=== PATIENT | female | born 1945 | race Caucasian/White ===

== ENCOUNTER 2019-06-10 11:57 | Observation (INO) ==
--- NOTE | 2019-06-10 12:12 | Emergency Department Note ---
Disposition Clinical Impression: Numbness Disposition: Admitted As Inpatient Condition: Fair Time of Disposition: 14:12 Neuro HPI - General Chief Complaint: ED Neuro Symptoms/Deficit Stated Complaint: numbness Time Seen by Provider: 06/10/19 12:05 Source: patient Mode of arrival: wheelchair Limitations: no limitations Nursing Notes Reviewed: Yes Vital Signs Reviewed: Yes - History of Present Illness HPI Narrative: Patient is a 73-year-old female with past medical history of CVA/TIA, hypertension, hyperlipidemia who presents with numbness since 7:30 this morning. She woke up feeling normal, however after eating breakfast around 7:30 started to feel symptoms on the left side of her body including her face, neck, left upper extremity, torso, left lower extremity. He also mentions that she has had some difficulty producing words. During the interview she did not appear to hav e any difficulty pronouncing words, however speech does sound slurred. She did not have any weakness. Patient does have a history of seizures, however says that she is compliant with her medications. Says that this does not feel like seizures that she has no past. Does have a remote history of intracranial bleed when she was a small child. No other head trauma since. Patient is not on any blood thinners. Patient denies any nausea, vomiting, fevers, chills. Denies any chest pain, shortness of breath, syncope. She also has not had any vision changes, hearing changes. Denies any dizziness or lightheadedness. Patient is able to follow commands and is alert and oriented. Onset of Symptoms Date: 06/10/19 Onset of Symptoms Time: 07:30 Symptom Onset Unknown: Yes - Related Data Home Medications: Home Medications Medication Instructions Recorded Confirmed Amitriptyline [Elavil] 50 mg PO HS 06/10/19 06/10/19 Amlodipine Besylate 5 mg PO DAILY 06/10/19 06/10/19 Cyanocobalamin (Vitamin B-12) 250 mcg PO DAILY 06/10/19 06/10/19 [Vitamin B-12] Cyclobenzaprine HCl 5 mg PO HS 06/10/19 06/10/19 Donepezil [Aricept] 5 mg PO DAILY 06/10/19 06/10/19 Duloxetine HCl 20 mg PO DAILY 06/10/19 06/10/19 Ferrous Gluconate 324 mg PO DAILY 06/10/19 06/10/19 Levothyroxine Sodium 50 mcg PO 0630 06/10/19 06/10/19 Omeprazole [PriLOSEC] 40 mg PO DAILY 06/10/19 06/10/19 Topiramate 50 mg PO DAILY 06/10/19 06/10/19 levETIRAcetam [Levetiracetam] 1,000 mg PO BID 06/10/19 06/10/19 Allergies/Adverse Reactions: Allergies Allergy/AdvReac Type Severity Reaction Status Date / Time ampicillin Allergy Nausea Verified 02/01/19 10:38 atenolol Allergy Nausea Verified 02/01/19 10:38 atorvastatin [From Lipitor] Allergy Nausea Verified 02/01/19 10:38 celecoxib [From Celebrex] Allergy Nausea Verified 02/01/19 10:38 codeine Allergy Nausea Verified 02/01/19 10:38 meperidine [From Demerol] Allergy Nausea Verified 02/01/19 10:38 morphine Allergy Nausea Verified 02/01/19 10:38 naproxen Allergy Nausea Verified 02/01/19 10:38 Penicillins Allergy Rash Verified 08/18/18 09:52 phenytoin [From Dilantin] Allergy Nausea Verified 02/01/19 10:38 rofecoxib [From Vioxx] Allergy Nausea Verified 02/01/19 10:38 simvastatin [From Zocor] Allergy Nausea Verified 02/01/19 10:38 [id number] Reductase Allergy Nausea Verified 02/01/19 10:38 Inhibitor [Statins] Sulfa (Sulfonamide Allergy Nausea Verified 02/01/19 10:38 Antibiotics) All systems ED: reviewed and negative except as stated. Review of Systems: As Per HPI Constitutional: Denies: fever, chills, weakness Eyes: Denies: eye pain, eye discharge, vision change ENT ED: Denies: ear pain, congestion, dysphagia Cardiovascular: Denies: chest pain, palpitations, dyspnea on exertion Past Medical History - Past Medical History Attestation: Yes The following information was validated with the patient. Source: patient, old records reviewed Medical history: Reports: arthritis, CVA, hyperlipidemia, kidney stones, migraine, seizures, thyroid disease, TIA Surgical history: Reports: appendectomy, cholecystectomy, hysterectomy Psychiatric history: Reports: anxiety, depression - Social History Smoking Status: Never smoker Smokeless Tobacco Status: No Alcohol use: Reports: none Drug use: Reports: none Physical Exam GEN: NAD, conversant. HEAD: Normocephalic, atraumatic. EYES: PERRL, EOMI, anicteric. ENT: MMM. oropharynx without erythema or drainage. NECK: Supple. No LAD. No stiffness or restricted ROM. No tracheal deviation. HEART: Regular rate and regular rhythm, normal S1/S2, no m/r/g. LUNGS: CTAB, good air exchange bilaterally. No wheezing, rubs, or rhonchi. ABDO: Soft, nontender, nondistended with active bowel sounds. : No suprapubic tenderness or CVA tenderness. BACK: No obvious stepoffs or deformities. EXT: Without cyanosis, clubbing or edema. SKIN: Warm and dry without any rash. NEURO: AAO 3, CN II through XII intact, strength 5 out of 5 in upper and lower extremities. Sensation decreased on the left side of face, left upper extremity, left lower extremity. PSYCH: Normal affect, no depressed or anxious mood. - General Limitations: no limitations General appearance: alert Course Course Narrative: Stroke alert was activated. She was seen and examined at bedside. Initial vitals were within normal limits. Exam was notable for left-sided numbness extending from the neck upper and lower extremity. Her NIH stroke score scale is 1. CT of the head showed no acute intracranial abnormalities, chronic microvascular ischemic changes. EKG was also normal. Lab workup was remarkable. Spoke with Dr. Lazo over at [facility] using telestroke. Decided that due to minimal symptoms, patient was not a candidate for TPA. Recommended admission for further workup including potential echo, MRI. And to further investigate causes of weakness including metabolic abnormalities, polypharmacy, etc. We will give aspirin per stroke protocol. She was communicated to the hospitalist for admission. Patient was accepted by Dr. Buckley. Vital Signs Temperature 98.3 F 06/10/19 12:15 Pulse Rate 60 06/10/19 12:15 Respiratory Rate 18 06/10/19 12:15 Blood Pressure 125/62 06/10/19 12:15 O2 Sat by Pulse Oximetry 100 06/10/19 12:15 Temperature 98.3 F 06/10/19 12:15 Pulse Rate 60 06/10/19 13:15 Respiratory Rate 16 09/23/19 13:15 Blood Pressure 119/62 06/10/19 13:15 O2 Sat by Pulse Oximetry 98 06/10/19 13:15 Oxygen Delivery Oxygen Delivery Room Air Neuro Symptoms/Deficit - Medical Records Medical records reviewed: Yes I reviewed the patient's medical records. - Lab Data Lab results reviewed: Yes I reviewed the patient's lab results. Result diagrams: 06/10/19 12:10 06/10/19 12:10 Lab Results 06/10/19 06/10/19 06/10/19 Range/Units 12:08 12:10 12:10 WBC 5.2 (4.3-11.1) K/mcL RBC 4.34 (3.82-4.97) M/mcL Hgb 13.8 (11.5-15.4) g/dL Hct 41.4 (35.3-44.9) % MCV 95.4 (83.0-100.0) fL MCH 31.8 (28.0-33.3) pg MCHC 33.3 (31.6-35.5) g/dL RDW 11.9 (11.5-14.5) % Plt Count 157 (140-400) K/mcL MPV 10.2 (9.4-12.4) fL PT 11.3 (9.4-12.1) Seconds INR 1.0 APTT 29.1 (26.0-36.0) Seconds Sodium (136-145) mEq/L Potassium (3.5-5.1) mEq/L Chloride (98-107) mEq/L Carbon Dioxide (23-29) mEq/L BUN (8-23) mg/dL Creatinine (0.60-1.20) mg/dL Est GFR ( Amer) (> 60) Est GFR (Non-Af Amer) (> 60) BUN/Creatinine Ratio (6-26) Glucose (70-105) mg/dL POC Glucose 130 H (70-99) mg/dL Calculated Osmolality (280-300) Calcium (8.6-10.3) mg/dL Troponin I (< 0.04) ng/mL 06/10/19 Range/Units 12:10 WBC (4.3-11.1) K/mcL RBC (3.82-4.97) M/mcL Hgb (11.5-15.4) g/dL Hct (35.3-44.9) % MCV (83.0-100.0) fL MCH (28.0-33.3) pg MCHC (31.6-35.5) g/dL RDW (11.5-14.5) % Plt Count (140-400) K/mcL MPV (9.4-12.4) fL PT (9.4-12.1) Seconds INR APTT (26.0-36.0) Seconds Sodium 142 (136-145) mEq/L Potassium 3.9 (3.5-5.1) mEq/L Chloride 107 (98-107) mEq/L Carbon Dioxide 29 (23-29) mEq/L BUN 12 (8-23) mg/dL Creatinine 1.02 (0.60-1.20) mg/dL Est GFR ( Amer) > 60 (> 60) Est GFR (Non-Af Amer) 53 L (> 60) BUN/Creatinine Ratio 12 (6-26) Glucose 139 H (70-105) mg/dL POC Glucose (70-99) mg/dL Calculated Osmolality 296 (280-300) Calcium 8.7 (8.6-10.3) mg/dL Troponin I < 0.03 (< 0.04) ng/mL - Radiology Data Radiology results reviewed: Yes I reviewed the patient's radiology results. - EKG Data EKG attestation: Yes I reviewed and interpreted this EKG. EKG results narrative: EKG obtained at 12:20 PM showed normal sinus rhythm, normal axis, left bundle branch block, no evidence of hypertrophy, no acute ischemic changes. Compared to previous from March 08, 2019. NIH Stroke Scale - Level of Consciousness LOC: Alert - LOC Questions LOC Questions: Answers both correctly - LOC Commands LOC Commands: Performs both correctly - Best Gaze Best Gaze: Normal - Visual Visual: No visual loss - Facial Palsy Facial Palsy: Normal - Motor Arms Motor Arm-Left: No drift for 10 seconds Motor Arm-Right: No drift for 10 seconds - Motor Legs Motor Leg-Left: No drift for 5 seconds Motor Leg-Right: No drift for 5 seconds - Limb Ataxia Limb Ataxia: Normal, No Ataxia - Sensory Sensory: Mild to moderate loss, "not as sharp" - Best Language Best Language: No aphasia - Dysarthria Dysarthria: Normal - Extinction and Inattention Extinction and Inattention: Normal - NIHSS Total Score NIHSS Total Score: 1 TPA Checklist - LKW: 3-4.5 hrs Add. Warnings/Precautions Patient/family understanding: The patient/family members have been counseled and understood the risk, benefit, and alternatives of treatment. Attestation Statement - Attestation Attestation: I, Luc Ruelas DO, examined this patient [id number] and my medical decision-making was reviewed with Saqib Sherwood MD, Resident Physician. I agree with the documented findings, disposition and treatment plan as described exce pt to the extent set forth below. I personally supervised and was present for the amador/critical portions of the procedures completed by the resident documented below. Please see my progress notes for details.
[2019-06-10 12:19] LABS: Hematocrit 41.4 % (35.3-44.9); Hemoglobin 13.8 g/dL (11.5-15.4); Mean Corpuscular HGB Conc 33.3 g/dL (31.6-35.5); Mean Corpuscular Hemoglobin 31.8 pg (28.0-33.3); Mean Corpuscular Volume 95.4 fL (83.0-100.0); Mean Platelet Volume 10.2 fL (9.4-12.4); Platelet Count 157 K/mcL (140-400); Red Blood Count 4.34 M/mcL (3.82-4.97); Red Cell Distribution Width 11.9 % (11.5-14.5); White Blood Count 5.2 K/mcL (4.3-11.1)
[2019-06-10 12:27] LABS: Prothrombin Time 11.3 Seconds (9.4-12.1)
--- NOTE | 2019-06-10 12:27 | Emergency Department Note ---
Disposition Clinical Impression: Transient cerebral ischemia, Numbness Disposition: Admitted As Inpatient Condition: Fair Forms: ED Satisfaction Letter Time of Disposition: 13:43 General Adult HPI - General Chief complaint: ED Neuro Symptoms/Deficit Stated complaint: numbness Time Seen by Provider: 06/10/19 12:05 - Related Data Home Medications Medication Instructions Recorded Confirmed Amitriptyline [Elavil] 50 mg PO HS 06/10/19 06/10/19 Amlodipine Besylate 5 mg PO DAILY 06/10/19 06/10/19 Cyanocobalamin (Vitamin B-12) 250 mcg PO DAILY 06/10/19 06/10/19 [Vitamin B-12] Cyclobenzaprine HCl 5 mg PO HS 06/10/19 06/10/19 Donepezil [Aricept] 5 mg PO DAILY 06/10/19 06/10/19 Duloxetine HCl 20 mg PO DAILY 06/10/19 06/10/19 Ferrous Gluconate 324 mg PO DAILY 06/10/19 06/10/19 Levothyroxine Sodium 50 mcg PO 0630 06/10/19 06/10/19 Omeprazole [PriLOSEC] 40 mg PO DAILY 06/10/19 06/10/19 Topiramate 50 mg PO DAILY 06/10/19 06/10/19 levETIRAcetam [Levetiracetam] 1,000 mg PO BID 06/10/19 06/10/19 Allergies Allergy/AdvReac Type Severity Reaction Status Date / Time ampicillin Allergy Nausea Verified 02/01/19 10:38 atenolol Allergy Nausea Verified 02/01/19 10:38 atorvastatin [From Lipitor] Allergy Nausea Verified 02/01/19 10:38 celecoxib [From Celebrex] Allergy Nausea Verified 02/01/19 10:38 codeine Allergy Nausea Verified 02/01/19 10:38 meperidine [From Demerol] Allergy Nausea Verified 02/01/19 10:38 morphine Allergy Nausea Verified 02/01/19 10:38 naproxen Allergy Nausea Verified 02/01/19 10:38 Penicillins Allergy Rash Verified 08/18/18 09:52 phenytoin [From Dilantin] Allergy Nausea Verified 02/01/19 10:38 rofecoxib [From Vioxx] Allergy Nausea Verified 02/01/19 10:38 simvastatin [From Zocor] Allergy Nausea Verified 02/01/19 10:38 [id number] Reductase Allergy Nausea Verified 02/01/19 10:38 Inhibitor [Statins] Sulfa (Sulfonamide Allergy Nausea Verified 02/01/19 10:38 Antibiotics) Past Medical History - Past Medical History Medical history: Reports: arthritis, CVA, hyperlipidemia, kidney stones, migraine, seizures, thyroid disease, TIA Surgical history: Reports: appendectomy, cholecystectomy, hysterectomy Psychiatric history: Reports: anxiety, depression - Social History Smoking Status: Never smoker Smokeless Tobacco Status: No Alcohol use: Reports: none Drug use: Reports: none Course Vital Signs Temperature 98.3 F 06/10/19 12:15 Pulse Rate 60 06/10/19 12:15 Respiratory Rate 18 06/10/19 12:15 Blood Pressure 125/62 06/10/19 12:15 O2 Sat by Pulse Oximetry 100 06/10/19 12:15 Temperature 98.3 F 06/10/19 12:15 Pulse Rate 60 06/10/19 13:15 Respiratory Rate 16 06/10/19 13:15 Blood Pressure 119/62 06/10/19 13:15 O2 Sat by Pulse Oximetry 98 06/10/19 13:15 Oxygen Delivery Oxygen Delivery Room Air Medical Decision Making - Lab Data Result diagrams: 06/10/19 12:10 06/10/19 12:10 Lab Results 06/10/19 06/10/19 06/10/19 Range/Units 12:08 12:10 12:10 WBC 5.2 (4.3-11.1) K/mcL RBC 4.34 (3.82-4.97) M/mcL Hgb 13.8 (11.5-15.4) g/dL Hct 41.4 (35.3-44.9) % MCV 95.4 (83.0-100.0) fL MCH 31.8 (28.0-33.3) pg MCHC 33.3 (31.6-35.5) g/dL RDW 11.9 (11.5-14.5) % Plt Count 157 (140-400) K/mcL MPV 10.2 (9.4-12.4) fL PT 11.3 (9.4-12.1) Seconds INR 1.0 APTT 29.1 (26.0-36.0) Seconds Sodium (136-145) mEq/L Potassium (3.5-5.1) mEq/L Chloride (98-107) mEq/L Carbon Dioxide (23-29) mEq/L BUN (8-23) mg/dL Creatinine (0.60-1.20) mg/dL Est GFR ( Amer) (> 60) Est GFR (Non-Af Amer) (> 60) BUN/Creatinine Ratio (6-26) Glucose (70-105) mg/dL POC Glucose 130 H (70-99) mg/dL Calculated Osmolality (280-300) Calcium (8.6-10.3) mg/dL Troponin I (< 0.04) ng/mL 06/10/19 Range/Units 12:10 WBC (4.3-11.1) K/mcL RBC (3.82-4.97) M/mcL Hgb (11.5-15.4) g/dL Hct (35.3-44.9) % MCV (83.0-100.0) fL MCH (28.0-33.3) pg MCHC (31.6-35.5) g/dL RDW (11.5-14.5) % Plt Count (140-400) K/mcL MPV (9.4-12.4) fL PT (9.4-12.1) Seconds INR APTT (26.0-36.0) Seconds Sodium 142 (136-145) mEq/L Potassium 3.9 (3.5-5.1) mEq/L Chloride 107 (98-107) mEq/L Carbon Dioxide 29 (23-29) mEq/L BUN 12 (8-23) mg/dL Creatinine 1.02 (0.60-1.20) mg/dL Est GFR ( Amer) > 60 (> 60) Est GFR (Non-Af Amer) 53 L (> 60) BUN/Creatinine Ratio 12 (6-26) Glucose 139 H (70-105) mg/dL POC Glucose (70-99) mg/dL Calculated Osmolality 296 (280-300) Calcium 8.7 (8.6-10.3) mg/dL Troponin I < 0.03 (< 0.04) ng/mL Attestation Statement - Attestation Attestation: I, Luc Ruelas DO, examined this patient [id number] and my medical decision-making was reviewed with Saqib Sherwood MD, Resident Physician. I agree with the documented findings, disposition and treatment plan as described except to the extent set forth below. I personally supervised and was present for the amador/critical portions of the procedures completed by the resident documented below. Please see my progress notes for details. 73-year-old female presents emergency room for evaluation of described difficulty with getting her words out as well as left-sided facial extremity torso and lower extremity numbness and tingling. Patient was able to ambulate at the bedside from her chair on her own. Patient was brought in by her with concern for possible stroke. 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 She is not currently on any blood thinners. She denies any recent falls trauma or injury. Currently denying chest pain shortness of breath. She has had intermittent headaches but does not have any acute headache at this time. Denies any recent illnesses, nausea, vomiting, diarrhea. She has been compliant with all of her medications without any active changes. Patient describes symptoms on arrival there is concern for possible stroke. Stroke alert was called at that time. Patient's head is atraumatic p upils are equal round reactive extracted muscles are intact. No visible signs of facial asymmetry. Sensation is intact to the bilateral facial distributions but appears to be different than the left side according to the patient's described symptoms. We will fax is patent soft palate is symmetrical. Tongue is normal. No deviation noted on exam. Trachea is midline lungs are clear heart is regular. Extremities otherwise normal with no visible signs of ataxia drift or weakness at this time. She is describing a sensation related abnormalities in left side of her body all the way down to her feet. Pulses are intact in the radial DP and PT distributions and symmetrical at this time. EKG was collected and reviewed by myself in documented as a physician's note. No acute abnormalities noted at this time. Patient's medication list will be reviewed as well and seizure medications will be addressed. Patient has not had a seizure in almost 2 years and denies any symptoms like that at this time. She remembers all the events here today. Patient woke up this morning about 7:30 was doing well and within an hour or so started to feel the symptoms that brought her into the emergency department. Last known well was approximately 5 hours will here to the emergency room. [facility] stroke evaluation to be completed and disposition determined. See detailed documentation the physical exam, medical intervention, medical decision-making disposition the resident physician's note. No critical care applied the patient's treatment course at this time. 1315 Patient has negative laboratory workup at this time. The [facility] neurologist Dr. Lazo reviewed the patient's presentation and case. Did not recommend TPA this time but did recommend admission for further evaluation of her symptomatically presentation. Patient is still mentating and speaking clear ly. No other acute issues or complaints at this time. The hospitalist at our facility Dr. Buckley reviewed the case. No other recommendations or concerns were noted. Aspirin was given secondary to the negative CT scan of the head. Patient will be admitted for possible TIA versus neurologic symptoms of unknown etiology. Her EKG labs and other imaging are completely unremarkable. Patient will be monitored here in the emergency Department of the admission process is completed.
[2019-06-10 12:30] LABS: Activated Partial Thrombo Time 29.1 Seconds (26.0-36.0)
[2019-06-10 12:36] LABS: BUN/Creatinine Ratio 12 (6-26); Blood Urea Nitrogen 12 mg/dL (8-23); Calcium 8.7 mg/dL (8.6-10.3); Carbon Dioxide 29 mEq/L (23-29); Chloride 107 mEq/L (98-107); Glucose 139 mg/dL (70-105); Osmolality,Calculated 296 (280-300); Potassium 3.9 mEq/L (3.5-5.1); Sodium 142 mEq/L (136-145); eGFR For African Americans > 60 (> 60); eGFR For Non-African Americans 53 (> 60)
[2019-06-10 12:38] LABS: Troponin I < 0.03 ng/mL (< 0.04)
[2019-06-10] MEDS ORDERED: Aspirin 325 MG TABLET PO ONE (12:48)
[2019-06-10] MEDS ORDERED: Naloxone 0.4 MG/ML INJ IVP PRN (14:14)
[2019-06-10 14:21] LABS: Bilirubin,Urine Negative (Negative); Blood,Urine Negative (Negative); Clarity,Urine Clear (Clear); Color,Urine Yellow (Yellow); Glucose,Urine (UA) Normal (Normal); Ketones,Urine Negative (Negative); Leukocyte Esterase,Urine Small (Negative); Nitrite,Urine Negative (Negative); Protein,Urine Negative (Neg-Trace); Specific Gravity,Urine 1.015 (1.010-1.025); Urobilinogen,Urine Normal (Normal)
[2019-06-10 14:24] LABS: Bacteria,Urine None Seen per hpf (None-Few); Hyaline Casts,Urine None Seen per lpf (None-Few); Squamous Epithelial Cell,Urine Many per lpf (None-Few)
--- NOTE | 2019-06-10 15:43 | Internal Med History&Physical ---
Date of Encounter: 06/10/19 Time of Encounter: 14:00 Internal Medicine - H&P: HPI Chief complaint: Numbness, confusion Admitted From: Emergency Dept Plans for Post Hospital Care: Home History of present illness: Ms. Yadav is a 73 year old female with a past medical history significant for seizure disorder, presented to the hospital because of numbness and tingling sensation on the left side of her body and confusion. According to the patient, she woke up at her usual time at 7:30 AM in the morning, had her breakfast, then she started realizing that there has been some numbness and tingling on the left side of her face and then the numbness and tingling also started on her whole body on the left side. She was also more confused and she had some difficulty finding the words. She called her daughter was a thought that she is confused and advised the patient to go to the emergency department. Patient mentioned that she has history of seizure she had multiple episodes like this in the past but they were resulted in seizure episodes. She has been seizure free for almost 5 years now. He did not have any episode like this in the last 5 years. Denies any problem with swallowing food, vision, headaches. Denies any problem with gait. Denies fever, chills, rigors. Denies chest pain, shortness of breanna ath, exertional dyspnea, PND. She was otherwise in her usual state of health. She mentions that she has problem with angina and sometimes take nitroglycerin pill but she does not have any history of [place]. She had a cardiac cath done in the past which was normal. In the emergency department patient was hemodynamically stable. EKG did not show any ischemic changes. Laboratory workup was normal. UA showed concerns for UTI. The patient is asymptomatic. CT scan of the head negative for bleeding or acute intracranial abnormalities. Did show cerebral and cerebellar parenchymal volume loss with chronic microvascular white matter ischemic disease. Stroke alert was called and the patient, recommendations were against giving the patient TPA. She was admitted for further management. Past Med Surg Social Fam HX - Past Medical History Medical history: arthritis, CVA, hyperlipidemia, kidney stones, migraine, seizures, thyroid disease, TIA Additional medical history: TBI Psychiatric history: anxiety, depression - Past Surgical History Surgical History: appendectomy, cholecystectomy, hysterectomy Additional surgical history: L breast sx, R axilla lipoma sx, rectocele repair, CTS - Social History Smoking Status: Never smoker Smokeless Tobacco Status: No Alcohol use: none Drug use: none - Additional Family History Additional family history: Father with the hx of CAD Internal Medicine - H&P: Meds Amitriptyline [Elavil] 50 mg PO HS 06/10/19 [History] Amlodipine Besylate 5 mg PO DAILY 06/10/19 [History] Cyanocobalamin (Vitamin B-12) [Vitamin B-12] 250 mcg PO DAILY 06/10/19 [History] Cyclobenzaprine HCl 5 mg PO HS 06/10/19 [History] Donepezil [Aricept] 5 mg PO DAILY 06/10/19 [History] Duloxetine HCl 20 mg PO DAILY 06/10/19 [History] Ferrous Gluconate 324 mg PO DAILY 06/10/19 [History] Levothyroxine Sodium 50 mcg PO 0630 06/10/19 [History] Omeprazole [PriLOSEC] 40 mg PO DAILY 06/10/19 [History] Topiramate 50 mg PO DAILY 06/10/19 [History] levETIRAcetam [Levetiracetam] 1,000 mg PO BID 06/10/19 [History] Allergy/AdvReac Type Severity Reaction Status Date / Time ampicillin Allergy Nausea Verified 02/01/19 10:38 atenolol Allergy Nausea Verified 02/01/19 10:38 atorvastatin [From Lipitor] Allergy Nausea Verified 02/01/19 10:38 celecoxib [From Celebrex] Allergy Nausea Verified 02/01/19 10:38 codeine Allergy Nausea Verified 02/01/19 10:38 meperidine [From Demerol] Allergy Nausea Verified 02/01/19 10:38 morphine Allergy Nausea Verified 02/01/19 10:38 naproxen Allergy Nausea Verified 02/01/19 10:38 Penicillins Allergy Rash Verified 08/18/18 09:52 phenytoin [From Dilantin] Allergy Nausea Verified 02/01/19 10:38 rofecoxib [From Vioxx] Allergy Nausea Verified 02/01/19 10:38 simvastatin [From Zocor] Allergy Nausea Verified 02/01/19 10:38 Owqvdla-Nho-Bwy Reductase Allergy Nausea Verified 02/01/19 10:38 Inhibitor [Statins] Sulfa (Sulfonamide Allergy Nausea Verified 02/01/19 10:38 Antibiotics) All Systems PM: A 10-system review of systems was performed and is negative for pertinent findings except as documented above in the HPI. Review of systems: General: Negative for fever, chills, rigors. HEENT: Negative for neck swelling, discharge from nose, discharge from ears. EYES: Negative for any discharge from the eyes. Respiratory: Negative for shortness of breath, orthopnea, exertional dyspnea. Cardiovascular: Negative for chest pain, shortness of breath, orthopnea, PND. Gastrintestical: Negative for diarrhea, constipation, blood in stools. Genitourinary: Negative for dysuria, hematuria, nocturia, increased frequency of urine. Hematological: Negative for blood loss, negative for active cancer. Neurological: See HPI Endocrinology: Negative for constipation, polyuria, polydipsia. Integumentary: Negative for rash, wounds, ulcers. Psychiatric: Negative for anxiety or depression. - Constitutional Vitals: Temp Pulse Resp BP Pulse Ox 98.1 F 65 16 132/73 95 06/10/19 15:27 06/10/19 15:27 06/10/19 15:27 06/10/19 15:27 06/10/19 15:27 Exam: General: Alert and oriented, no physical distress, able to follow commands. HEENT: No thyromegaly, no lymphadenopathy, no discharge. Eyes: No discharge. Normal conjuctiva, no icterus Respiratory: Normal vesicular breathing, no added sounds, breathing equal in both sides. CVS: Normal heart sounds, no murmurs, regular rhthm, no edema Extremities: No peripheral edema, peripheral pulses intact. Lymph nodes: No lymphadenopathy Gastrointestinal: Soft, nontender abdomen, normal abdominal sounds. No distention noted. Genitourinary: No paravertebral tenderness. Skin: No rash, ulcers or wound. Neurological: Alert and oriented. Power 5/5 in all extremities, pt mentions that sesations are weaker in the left side. Cranial nerves II-XII intact. Head to nsoe test normal, no pronator drift. Internal Med - H&P Results - Labs CBC & Chem 7: 06/10/19 12:10 06/10/19 12:10 Labs: Short CBC 06/10/19 Range/Units 12:10 WBC 5.2 (4.3-11.1) K/mcL Hgb 13.8 (11.5-15.4) g/dL Hct 41.4 (35.3-44.9) % Plt Count 157 (140-400) K/mcL BMP 06/10/19 12:10 Sodium 142 Potassium 3.9 Chloride 107 Carbon Dioxide 29 BUN 12 Creatinine 1.02 Glucose 139 H Calcium 8.7 Cardiac Enzymes 06/10/19 Range/Units 12:10 Troponin I < 0.03 (< 0.04) ng/mL Urine 06/10/19 Range/Units 13:57 Urine Color Yellow (Yellow) Urine Clarity Clear (Clear) Urine pH 6.0 (5.0-8.0) pH Units Ur Specific [place] 1.015 (1.010-1.025) Urine Protein Negative (Neg-Trace) mg/dL Urine Glucose (UA) Normal (Normal) mg/dL - Impressions ITS Impressions Head CT 06/10/19 12:16 IMPRESSION: 1. No acute intracranial abnormality. 2. Cerebral and cerebellar parenchymal volume loss with chronic microvascular white matter ischemic disease. These results were discussed with Dr. Sherwood at 12:19 p.m. on 06/10/2019. D/ / 06/10/2019 12:28:06 Walt Natarajan MD / edilberto Interpreting Provider: Walt Natarajan MD - Assessment and Plan (1) CVA (cerebral vascular accident) Current Visit: Yes Status: Acute Assessment and plan: Concerns for the CVA considering the patient history. Has been given aspirin in the ER medicine Department. [facility] monitoring. Order the basic workup including echocardiogram, carotid Dopplers, telemetry, MRI of the brain. [employer] neurology. Obtain lipid panel and hemoglobin A1c. Continue to monitor. PT/OT Patient mentions that she has statin allergy. Qualifiers: CVA mechanism: unspecified Qualified Code(s): I63.9 - Cerebral infarction, unspecified (2) Seizure disorder Current Visit: Yes Status: Acute Assessment and plan: This episode does not seem to be a seizure episode. Continue the home medications. (3) Hypertension Current Visit: Yes Status: Acute Assessment and plan: Blood pressure within desirable range. Hold amlodipine at this point considering the patient's blood pressure is already low and there are concerns for the TIA Qualifiers: Hypertension type: unspecified Qualified Code(s): I10 - Essential (primary) hypertension (4) Hypothyroidism Current Visit: Yes Status: Acute Assessment and plan: Continue home medication. Qualifiers: Hypothyroidism type: unspecified Qualified Code(s): E03.9 - Hypothyroidism, unspecified (5) Dementia Current Visit: Yes Status: Acute Assessment and plan: Continue Aricept. Qualifiers: Dementia type: unspecified type Dementia behavioral disturbance: without behavioral disturbance Qualified Code(s): F03.90 - Unspecified dementia without behavioral disturbance (6) Numbness Current Visit: Yes Status: Acute Assessment and plan: Management plan mentioned above. (7) Urine abnormality Current Visit: Yes Status: Acute Assessment and plan: UA positive. Patient is asymptomatic. Hold off on the antibiotics. Await culture results. - Summary of Assessment and Plan Summary of Assessment and Plan: Patient EKG was reviewed by me. Reviewed laboratory workup. Reviewed CT scan report. - Time Spent With Patient Total time spent is greater than 50% in coordination of care (as documented) at patient's floor/unit and/or counseling patient:
[2019-06-10] MEDS: levETIRAcetam 250 MG TABLET PO SCH (20:25)
[2019-06-10] MEDS ORDERED: Perflutren Lipid Microsphere 1.3 ML in 0.9 % Sodium Chloride 8.7 ML IVP ONE (22:06)
[2019-06-11 05:17] LABS: Basophils % 0.6 %; Eosinophils # 0.3 K/mcL (0.0-0.6); Eosinophils % 5.7 %; Hematocrit 39.8 % (35.3-44.9); Hemoglobin 13.4 g/dL (11.5-15.4); Immature Granulocytes % 0.2 % (0-4); Lymphocytes # 1.9 K/mcL (0.6-4.6); Lymphocytes % 34.8 %; Mean Corpuscular HGB Conc 33.7 g/dL (31.6-35.5); Mean Platelet Volume 10.6 fL (9.4-12.4); Monocytes # 0.6 K/mcL (0.0-1.3); Monocytes % 10.5 %; Neutrophils # 2.6 K/mcL (1.6-8.9); Platelet Count 148 K/mcL (140-400); Red Blood Count 4.19 M/mcL (3.82-4.97); Red Cell Distribution Width 11.9 % (11.5-14.5); Segmented Neutrophils % 48.2 %; White Blood Count 5.4 K/mcL (4.3-11.1)
[2019-06-11 05:37] LABS: BUN/Creatinine Ratio 15 (6-26); Blood Urea Nitrogen 14 mg/dL (8-23); Calcium 8.4 mg/dL (8.6-10.3); Carbon Dioxide 27 mEq/L (23-29); Chloride 109 mEq/L (98-107); Glucose 103 mg/dL (70-105); Osmolality,Calculated 295 (280-300); Potassium 3.5 mEq/L (3.5-5.1); Sodium 142 mEq/L (136-145); eGFR For African Americans > 60 (> 60); eGFR For Non-African Americans 60 (> 60)
[2019-06-11 05:41] LABS: Chol/HDL Ratio 3.1 (0-4.9)
[2019-06-11 07:29] VITALS: BP 111/60
[2019-06-11 08:55] LABS: Estimated Average Glucose 114 mg/dl
[2019-06-11] MEDS ORDERED: Cyanocobalamin (B-12) 1,000 MCG TABLET PO SCH (09:00)
[2019-06-11] MEDS ORDERED: Aspirin 81 MG TAB.CHEW PO SCH (09:00)
[2019-06-11] MEDS ORDERED: Topiramate 25 MG TABLET PO SCH (09:00)
[2019-06-11] MEDS: levETIRAcetam 250 MG TABLET PO SCH (09:32)
--- NOTE | 2019-06-11 09:58 | Neurology - Consult Note ---
Date of Encounter: 06/11/19 Time of Encounter: 07:45 Assessment and Plan (1) Left sided numbness Current Visit: Yes Status: Acute This patient was admitted with this left-sided numbness as well as some difficulty with his speech that all has been resolved now and she is back to the baseline, so far workup including CT scan of the head as well as MRI has been negative Certainly is a possibility that patient could have a TIA She will be getting a stroke workup including echocardiogram and carotid She is not on any antiplatelet agent I would recommend that she should be taking aspirin 81 mg on a regular basis along with statin to prevent any further spells like this She does need this factor modification Other possibility that these could be a complex partial seizure but the description does not sound like a typical seizures in fact it is more of a TIA then the seizures, regardless suggest to continue on the current dosage of anticonvulsive medication At the moment I did not see any focal motor deficit on examination She does not require any physical therapy evaluation at this time If workup negative including echocardiogram and carotid she could be discharged with antiplatelet therapy (2) History of seizure disorder Current Visit: Yes Status: Acute History of Present Illness HPI: Ms. Yadav is a 73 year old female with past medical history significant for seizure disorder, presented to the hospital because of numbness and tingling sensation on the left side of her body and some confusion. According to the patient, she woke up at her usual time at 7:30 AM in the morning, had her breakfast, then she started realizing that there has been some numbness and tingling on the left side of her face and then the numbness and tingling also started on her whole body on the left side. per daughter some confusion and some difficulty finding the words. She has history of seizure she had multiple episodes like this in the past but they were resulted in seizure episodes. she did not have any episode like this in the last 5 years. Denies any problem with swallowing food, vision, headaches. Denies any problem with gait. Denies fever, chills, rigors. Denies chest pain, shortness of breath, exertional dyspnea, PND. She was otherwise in her usual state of health. Laboratory workup was normal. UA showed concerns for UTI. CT scan of the head negative for bleeding or acute intracranial abnormalities, cerebral and cerebellar parenchymal volume loss with chronic microvascular white matter ischemic disease. [facility] tele Stroke alert was called , pt was not a TPA candidate, She was admitted for further management. Now patient is asymptomatic and back to her baseline Past Med Surg Social Fam HX - Past Medical History Medical history: arthritis, CVA, hyperlipidemia, kidney stones, migraine, seizures, thyroid disease, TIA Additional medical history: TBI Psychiatric history: anxiety, depression - Past Surgical History Surgical History: appendectomy, cholecystectomy, hysterectomy Additional surgical history: L breast sx, R axilla lipoma sx, rectocele repair, CTS - Social History Smoking Status: Never smoker Smokeless Tobacco Status: No Alcohol use: none Drug use: none - Family History Mother Living Status: Cause of : Stroke Hx Family Cardiac Disorders: Yes (HTN, Smoker) Hx Family Respiratory Disorders: Yes (COPD) Father Living Status: Age at : 70 Cause of : heart Hx Family Cardiac Disorders: Yes (CAD, OR X 2) Medications and Allergies Amitriptyline [Elavil] 50 mg PO HS 06/10/19 [History] Amlodipine Besylate 5 mg PO DAILY 06/10/19 [History] Cyanocobalamin (Vitamin B-12) [Vitamin B-12] 250 mcg PO DAILY 06/10/19 [History] Cyclobenzaprine HCl 5 mg PO HS 06/10/19 [History] Donepezil [Aricept] 5 mg PO DAILY 06/10/19 [History] Duloxetine HCl 20 mg PO DAILY 06/10/19 [History] Ferrous Gluconate 324 mg PO DAILY 06/10/19 [History] Levothyroxine Sodium 50 mcg PO 0630 06/10/19 [History] Omeprazole [PriLOSEC] 40 mg PO DAILY 06/10/19 [History] Topiramate 50 mg PO DAILY 06/10/19 [History] levETIRAcetam [Levetiracetam] 1,000 mg PO BID 06/10/19 [History] Allergy/AdvReac Type Severity Reaction Status Date / Time ampicillin Allergy Nausea Verified 02/01/19 10:38 atenolol Allergy Nausea Verified 02/01/19 10:38 atorvastatin [From Lipitor] Allergy Nausea Verified 02/01/19 10:38 celecoxib [From Celebrex] Allergy Nausea Verified 02/01/19 10:38 codeine Allergy Nausea Verified 02/01/19 10:38 meperidine [From Demerol] Allergy Nausea Verified 02/01/19 10:38 morphine Allergy Nausea Verified 02/01/19 10:38 naproxen Allergy Nausea Verified 02/01/19 10:38 Penicillins Allergy Rash Verified 08/18/18 09:52 phenytoin [From Dilantin] Allergy Nausea Verified 02/01/19 10:38 rofecoxib [From Vioxx] Allergy Nausea Verified 02/01/19 10:38 simvastatin [From Zocor] Allergy Nausea Verified 02/01/19 10:38 Skahfid-Wrx-Jhz Reductase Allergy Nausea Verified 02/01/19 10:38 Inhibitor [Statins] Sulfa (Sulfonamide Allergy Nausea Verified 02/01/19 10:38 Antibiotics) All Systems: The remainder of the systems were reviewed and are negative Physical Examination - Vital Signs Vital Signs: Initial Vital Signs Temp Pulse Resp BP Pulse Ox 98.3 F 60 18 125/62 100 06/10/19 12:15 06/10/19 12:15 06/10/19 12:15 06/10/19 12:15 06/10/19 12:15 - Exam Exam: GENERAL: Comfortable in no acute distress HEENT: Normal LUNGS: CTA HEART: RRR, S1 S2 Audible, no murmur EXTREMITIES: No Pedal edema. DETAILED NEUROLOGICAL EXAMINATION: MENTAL STATUS: Oriented to person, place, date and situation. Memory: knows the President, Aware of recent events Recent Memory Intact, Attention span is normal Cranial Nerve Examination: CN - II: Visual Acuity, Field of Vision Normal, Fundus examination: No disk edema, Pupils- size shape reaction to light and accommodation: All normal. CN III, IV, : External ocular movements were intact, Pupils were reactive, Nodrooping of the eyelids CN V: Sensation over the face to light touch and pinprick all normal. Corneal reflexes not tested, jaw jerk normal. CN VII: No facial asymmetry, no flattening of nasolabial folds, no difficulty in closing the eyes, no loss of forehead wrinkles, no difficulty in eye-closure, frowning raising eyebrows. CNVIII: No significant hearing loss CN IX, X: Uvula centralized not deviated, Gag reflex: Not tested CN X1: Sternocleidomastoid, trapezius, normal or evidence of any weakness. CN X11: No Dysarthria, no wasting or fibrilation f tongue muscles, no deviation, tongue muscle strength normal. Motor examination: No hypertrophy, tone was normal, power grade 0-5 Upper limbs Proximal- No difficulty in lifting the arms above the head. Distal- No weakness in distal muscles On formal testing 5/5 all over Lower limbs On formal testing 5/5 all over Coordination: [id number] normal. Target pursuit normal finger tapping normal, Rapid alternating moment of wrist normal Sensory system: Superficial sensations- Touch normal. Pain- Pinprick, Temperature all normal, Deep sensation normal, Joint position sense normal. Cortical sensation, Tactile discrimination, localization and extinction all normal. Deep tendon reflexes. Symmetrical bilateral, No evidence of Babinski. No sign of meningeal irritation Gait Examination: Deferred - Constitutional General appearance: comfortable Results - Laboratory Findings CBC and BMP: 06/11/19 03:37 06/11/19 03:37 Abnormal lab findings: Abnormal lab results Chloride 109 mEq/L (98-107) H 06/11/19 03:37 Est GFR (Non-Af Amer) 53 (> 60) L 06/10/19 12:10 Glucose 139 mg/dL (70-105) H 06/10/19 12:10 POC Glucose 130 mg/dL (70-99) H 06/10/19 12:08 Calcium 8.4 mg/dL (8.6-10.3) L 06/11/19 03:37 HDL Cholesterol 35 mg/dL (40-59) L 06/11/19 03:37 Ur Leukocyte Esterase Small (Negative) H 06/10/19 13:57 Urine Microscopic RBC 3-5 per hpf (0-3) H 06/10/19 13:57 Urine Microscopic WBC 5-15 per hpf (0-3) H 06/10/19 13:57 Ur Squamous Epith Cells Many per lpf (None-Few) H 06/10/19 13:57 Ur Culture Indicated? YES (NO) A 06/10/19 13:57 - Diagnostic Findings Additional findings: MRI of the brain and CT scan of the head both is been negative Consult Discharge Plan - Plan Referrals: Kilo Lopez [Primary Care Provider] -
--- NOTE | 2019-06-11 10:33 | Discharge Summary ---
- NOTES TO OUTPATIENT PROVIDER Notes to Outpatient Provider: Presnted with the numbness of the left side, likley TIA, workup WNL. Started on aspirin. Will defer the statin therapy as outpt considering hx of allergies to statins. Orders not resulted at time of discharge: Pending orders 06/10/19 13:57 Culture,Urine [RM] Stat Date of Encounter: 06/11/19 Time of Encounter: 08:10 - Discharge Diagnosis (1) CVA (cerebral vascular accident) Priority: Primary Status: Acute Qualifiers: CVA mechanism: unspecified Qualified Code(s): I63.9 - Cerebral infarction, unspecified (2) Seizure disorder Priority: Secondary Status: Acute (3) Hypertension Priority: Secondary Status: Acute Qualifiers: Hypertension type: unspecified Qualified Code(s): I10 - Essential (primary) hypertension (4) Hypothyroidism Priority: Secondary Status: Acute Qualifiers: Hypothyroidism type: unspecified Qualified Code(s): E03.9 - Hypothyroidism, unspecified (5) Dementia Priority: Secondary Status: Acute Qualifiers: Dementia type: unspecified type Dementia behavioral disturbance: without behavioral disturbance Qualified Code(s): F03.90 - Unspecified dementia without behavioral disturbance (6) Numbness Priority: Secondary Status: Acute (7) Urine abnormality Priority: Secondary Status: Acute Hospital course: Ms. Yadav is a 73 year old female with a past medical history significant for seizure disorder, presented to the hospital because of numbness and tingling sensation on the left side of her body and confusion. Stroke alert was called. No TPA was given. Fluids admitted for further management. MRI were negative. Echocardiogram with normal ejection fraction, no clots, no wall motion abnormalities. Carotid Dopplers were in normal limits. Neurology was consulted. No additional interventions are needed at this point. Recommended aspirin. Discussed with patient PCP to add aspirin. Patient could have a TIA. Further risk modification will required. Considering history of allergies to atorvastatin, defer statin therapy to the PCP as an outpatient. Patient is being discharged in stable condition. Discussed with the patient's family at bedside. - Time Spent with Patient Total time spent providing and/or coordinating discharge services: 25 minutes - Discharge Medications Prescriptions: New Aspirin 81 mg PO DAILY tab.chew Continued Amitriptyline [Elavil] 50 mg PO HS Amlodipine Besylate 5 mg PO DAILY Cyanocobalamin (Vitamin B-12) [Vitamin B-12] 250 mcg PO DAILY Cyclobenzaprine HCl 5 mg PO HS Donepezil [Aricept] 5 mg PO DAILY Duloxetine HCl 20 mg PO DAILY Ferrous Gluconate 324 mg PO DAILY levETIRAcetam [Levetiracetam] 1,000 mg PO BID Levothyroxine Sodium 50 mcg PO 0630 Omeprazole [PriLOSEC] 40 mg PO DAILY Topiramate 50 mg PO DAILY Home Medications: Amitriptyline [Elavil] 50 mg PO HS 06/10/19 [History] Amlodipine Besylate 5 mg PO DAILY 06/10/19 [History] Cyanocobalamin (Vitamin B-12) [Vitamin B-12] 250 mcg PO DAILY 06/10/19 [History] Cyclobenzaprine HCl 5 mg PO HS 06/10/19 [History] Donepezil [Aricept] 5 mg PO DAILY 06/10/19 [History] Duloxetine HCl 20 mg PO DAILY 06/10/19 [History] Ferrous Gluconate 324 mg PO DAILY 06/10/19 [History] Levothyroxine Sodium 50 mcg PO 0630 06/10/19 [History] Omeprazole [PriLOSEC] 40 mg PO DAILY 06/10/19 [History] Topiramate 50 mg PO DAILY 06/10/19 [History] levETIRAcetam [Levetiracetam] 1,000 mg PO BID 06/10/19 [History] Aspirin 81 mg PO DAILY tab.chew 06/11/19 [Rx] Allergies/Adverse Reactions: Allergy/AdvReac Type Severity Reaction Status Date / Time ampicillin Allergy Nausea Verified 02/01/19 10:38 atenolol Allergy Nausea Verified 02/01/19 10:38 atorvastatin [From Lipitor] Allergy Nausea Verified 02/01/19 10:38 celecoxib [From Celebrex] Allergy Nausea Verified 02/01/19 10:38 codeine Allergy Nausea Verified 02/01/19 10:38 meperidine [From Demerol] Allergy Nausea Verified 02/01/19 10:38 morphine Allergy Nausea Verified 02/01/19 10:38 naproxen Allergy Nausea Verified 02/01/19 10:38 Penicillins Allergy Rash Verified 08/18/18 09:52 phenytoin [From Dilantin] Allergy Nausea Verified 02/01/19 10:38 rofecoxib [From Vioxx] Allergy Nausea Verified 02/01/19 10:38 simvastatin [From Zocor] Allergy Nausea Verified 02/01/19 10:38 Xeajxkp-Gni-Qkc Reductase Allergy Nausea Verified 02/01/19 10:38 Inhibitor [Statins] Sulfa (Sulfonamide Allergy Nausea Verified 02/01/19 10:38 Antibiotics) Date of admission: 06/10/19 14:04 Primary care physician: Kilo Lopez Consults: 06/10/19 14:13 Consult to Occupational Therapy [CONS] Routine Comment: Evaluate, develop and implement POC Reason for Consult: Concerns for the TIA Does patient have active BEDREST order?: No Is patient medically & hemodynamically stable?: Yes Consult to Physical Therapy [CONS] Routine Comment: Evaluate, develop and implement POC Reason for Consult: Concerns for TIA Does patient have active BEDREST order?: No Is patient medically & hemodynamically stable?: Yes 06/10/19 14:15 Consult to Neurology [CONS] Routine Consulting Provider: Neurology [facility] Reason for Consult: TIA Call Completed: No - Constitutional Vitals: Temp Pulse Resp BP Pulse Ox 97.9 F 57 16 111/60 93 06/11/19 07:24 06/11/19 07:24 06/11/19 07:24 06/11/19 07:24 06/11/19 07:24 Exam: General: Alert and oriented, no physical distress, able to follow commands. Respiratory: Normal vesicular breathing, no added sounds, breathing equal in both sides. CVS: Normal heart sounds, no murmurs, regular rhthm, no edema Extremities: No peripheral edema, peripheral pulses intact. Lymph nodes: No lymphadenopathy Gastrointestinal: Soft, nontender abdomen, normal abdominal sounds. No distention noted. Genitourinary: No paravertebral tenderness. Skin: No rash, ulcers or wound. Neurological: Alert and oriented. Power 5/5 in all extremities, Cranial nerves II-XII intact. Head to nsoe test normal, no pronator drift. - Patient Status Disposition: Home, Self-Care Condition: Fair - Discharge Instructions Follow Up With: Kilo Lopez [Primary Care Provider] - - Diet and Activity Activity: increase activity as tolerated Diet: advance to your usual diet
--- NOTE | 2019-06-12 10:21 | Electrocardiograph Report ---
[facility] Test Date: 2019-06-10 Pat Name: Nimco Yadav Department: [id number] Room: 3B34 Gender: F Personnel Director: : [id number] Requested By: Luc Ruelas Order Number: [id number] Reading MD: Issa Mcduffie Measurements Intervals [place] Rate: 57 P: 16 NH: 170 QRS: -13 QRSD: 154 T: 167 QT: 452 QTc: 441 Interpretive Statements Sinus rhythm Left bundle branch block present 02/2019 Electronically Signed On 06-12-2019 10:19:15 EDT by Issa Mcduffie
== END 2019-06-11 11:21 | disposition home or self-care (01) ==
LOC: 3BNU 11:57 → EMEROOARM 11:57 → SUATTDRO 14:04 → 3BNU 14:35
PROVIDERS: ADMIT Internal Medicine; ATTEND Internal Medicine

== ENCOUNTER 2020-01-05 23:50 | Observation (INO) ==
[2020-01-06] MEDS ORDERED: Aspirin 81 MG TAB.CHEW PO ONE (00:03)
[2020-01-06 00:24] LABS: Basophils # 0.1 K/mcL (0.0-0.2); Basophils % 0.9 %; Eosinophils # 0.7 K/mcL (0.0-0.6); Eosinophils % 12.2 %; Hematocrit 44.3 % (35.3-44.9); Hemoglobin 14.3 g/dL (11.5-15.4); Immature Granulocytes % 0.2 % (0-4); Lymphocytes # 2.3 K/mcL (0.6-4.6); Lymphocytes % 42.9 %; Mean Corpuscular HGB Conc 32.3 g/dL (31.6-35.5); Mean Corpuscular Volume 95.9 fL (83.0-100.0); Mean Platelet Volume 10.7 fL (9.4-12.4); Monocytes # 0.6 K/mcL (0.0-1.3); Monocytes % 10.7 %; Neutrophils # 1.8 K/mcL (1.6-8.9); Platelet Count 152 K/mcL (140-400); Red Blood Count 4.62 M/mcL (3.82-4.97); Segmented Neutrophils % 33.1 %; White Blood Count 5.3 K/mcL (4.3-11.1)
[2020-01-06 00:30] LABS: INR 0.9; Prothrombin Time 9.9 Seconds (9.4-12.1)
[2020-01-06 00:33] LABS: Activated Partial Thrombo Time 28.1 Seconds (26.0-36.0)
[2020-01-06 00:39] LABS: Alanine Aminotransferase 16 Units/L (7-52); Albumin 4.3 g/dL (3.5-5.7); Alkaline Phosphatase 53 Units/L (34-104); Aspartate Amino Transferase 23 Units/L (13-39); BUN/Creatinine Ratio 13 (6-26); Bilirubin,Direct 0.1 mg/dL (0.0-0.2); Bilirubin,Indirect 0.3 mg/dL (0.0-1.0); Bilirubin,Total 0.4 mg/dL (0.3-1.0); Blood Urea Nitrogen 13 mg/dL (8-23); Calcium 9.1 mg/dL (8.6-10.3); Carbon Dioxide 27 mEq/L (23-29); Chloride 108 mEq/L (98-107); Globulin 2.2 g/dL (2.4-3.5); Glucose 109 mg/dL (70-105); Lipase 53 Units/L (11-82); Osmolality,Calculated 295 (280-300); Potassium 3.7 mEq/L (3.5-5.1); Sodium 142 mEq/L (136-145); Total Protein 6.5 g/dL (6.4-8.9); Troponin I < 0.03 ng/mL (< 0.04); eGFR For African Americans > 60 (> 60); eGFR For Non-African Americans 55 (> 60)
[2020-01-06] MEDS ORDERED: Nitroglycerin 1 INCH/GM PACKET TP ONE (01:37)
[2020-01-06] MEDS ORDERED: Naloxone 0.4 MG/ML INJ IVP PRN (02:58)
[2020-01-06] MEDS ORDERED: Nitroglycerin 0.4 MG TAB.SUBL SL PRN (03:15)
[2020-01-06 04:23] LABS: Thyroid Stimulating Hormone 4.086 mcIU/mL (0.340-5.600)
[2020-01-06] MEDS: Topiramate 25 MG TABLET PO SCH (08:09)
[2020-01-06] MEDS: Aspirin 81 MG TAB.CHEW PO SCH (08:09)
[2020-01-06] MEDS: amLODIPine 5 MG TABLET PO SCH (08:09)
[2020-01-06] MEDS ORDERED: levETIRAcetam 250 MG TABLET PO SCH (09:00)
[2020-01-06] MEDS ORDERED: Regadenoson 0.4 MG/5 ML SYRINGE IVP ONE (09:28)
[2020-01-06] MEDS: levETIRAcetam 250 MG TABLET PO SCH (20:52)
[2020-01-07] MEDS: Aspirin 81 MG TAB.CHEW PO SCH (08:24)
[2020-01-07] MEDS: levETIRAcetam 250 MG TABLET PO SCH (08:25)
[2020-01-07] MEDS: Topiramate 25 MG TABLET PO SCH (08:25)
[2020-01-07] MEDS: amLODIPine 5 MG TABLET PO SCH (08:25)
[2020-01-07] MEDS ORDERED: Heparin 1,000 UNITS/500 mL 500 ML ONE (10:25)
[2020-01-07] MEDS ORDERED: *HR* Heparin 10,000 UNIT/10 ML VIAL ONE (10:25)
[2020-01-07] MEDS ORDERED: Nitroglycerin 1,000 MCG/10 ML VIAL IV ONE (10:25)
[2020-01-07] MEDS ORDERED: 0.9 % Sodium Chloride 1,000 ML ONE ×2 (10:25→10:33)
[2020-01-07] MEDS ORDERED: ISOVUE-370 200 ML INFUS..BTL ONE (10:25)
[2020-01-07] MEDS ORDERED: *HR* FentaNYL (PF) 100 MCG/2 ML VIAL ONE (10:52)
[2020-01-07] MEDS ORDERED: *HR* Midazolam HCl 2 MG/2 ML VIAL ONE (10:52)
[2020-01-07] MEDS ORDERED: 0.9 % Sodium Chloride 1,000 ML IVC SCH (11:45)
[2020-01-07 14:25] VITALS: BP 132/58
== END 2020-01-07 14:38 | disposition home health service (06) ==
LOC: EMEROOARM 23:50 → 3BNU 23:50 → SUATTDRO 01-06 01:58 → 3BNU 01-06 02:19
PROVIDERS: ADMIT Internal Medicine; ATTEND Internal Medicine

== ENCOUNTER 2020-11-05 00:46 | Observation (INO) ==
[2020-11-05 01:41] LABS: Basophils # 0.1 K/mcL (0.0-0.2); Basophils % 0.7 %; Eosinophils # 0.4 K/mcL (0.0-0.6); Eosinophils % 4.1 %; Hematocrit 44.4 % (35.3-44.9); Immature Granulocytes % 0.1 % (0-4); Lymphocytes # 3.1 K/mcL (0.6-4.6); Lymphocytes % 35.8 %; Mean Corpuscular HGB Conc 33.8 g/dL (31.6-35.5); Mean Corpuscular Hemoglobin 31.3 pg (28.0-33.3); Mean Corpuscular Volume 92.5 fL (83.0-100.0); Mean Platelet Volume 10.8 fL (9.4-12.4); Monocytes # 0.8 K/mcL (0.0-1.3); Monocytes % 9.1 %; Neutrophils # 4.4 K/mcL (1.6-8.9); Platelet Count 185 K/mcL (140-400); Red Cell Distribution Width 12.3 % (11.5-14.5); Segmented Neutrophils % 50.2 %; White Blood Count 8.7 K/mcL (4.3-11.1)
[2020-11-05 01:43] LABS: Prothrombin Time 11.4 Seconds (9.4-12.1)
[2020-11-05 01:58] LABS: BUN/Creatinine Ratio 19 (6-26); Blood Urea Nitrogen 18 mg/dL (8-23); Calcium 9.4 mg/dL (8.6-10.3); Carbon Dioxide 24 mEq/L (23-29); Chloride 110 mEq/L (98-107); Glucose 123 mg/dL (70-105); Osmolality,Calculated 299 (280-300); Potassium 3.7 mEq/L (3.5-5.1); Sodium 143 mEq/L (136-145); Troponin I < 0.03 ng/mL (< 0.04); eGFR For African Americans > 60 (> 60); eGFR For Non-African Americans 59 (> 60)
[2020-11-05] MEDS ORDERED: Aspirin 81 MG TAB.CHEW PO ONE (03:37)
[2020-11-05] MEDS ORDERED: Acetaminophen 325 MG TABLET PO ONE (04:05)
[2020-11-05] MEDS ORDERED: Ondansetron 4 MG/2 ML VIAL IVP PRN (04:35)
[2020-11-05] MEDS ORDERED: Naloxone 0.4 MG/ML INJ IVP PRN (04:35)
[2020-11-05 06:17] LABS: Chol/HDL Ratio 4.6 (0-4.9); Phosphorous 3.1 mg/dL (2.7-4.5)
[2020-11-05 06:23] LABS: Thyroid Stimulating Hormone 6.176 mcIU/mL (0.340-5.600)
[2020-11-05] MEDS ORDERED: Perflutren Lipid Microsphere 1.3 ML in 0.9 % Sodium Chloride 8.7 ML IVP PRN (08:20)
[2020-11-05] MEDS ORDERED: amLODIPine 5 MG TABLET PO SCH (09:00)
[2020-11-05] MEDS: Aspirin 81 MG TAB.CHEW PO SCH (09:37)
[2020-11-05] MEDS: levETIRAcetam 250 MG TABLET PO SCH ×2 (09:38→20:20)
[2020-11-05] MEDS: Cyanocobalamin (B-12) 1,000 MCG TABLET PO SCH (09:39)
[2020-11-05] MEDS: Topiramate 25 MG TABLET PO SCH (09:44)
[2020-11-05 12:54] LABS: Troponin I < 0.03 ng/mL (< 0.04)
[2020-11-05 14:13] LABS: Creatine Kinase 122 Units/L (30-223)
[2020-11-06] MEDS ORDERED: *HR* Enoxaparin 40 MG/0.4 ML SYRINGE SQ SCH (06:00)
[2020-11-06] MEDS ORDERED: Regadenoson 0.4 MG/5 ML SYRINGE IVP ONE (06:22)
[2020-11-06] MEDS ORDERED: lisinopriL 20 MG TABLET PO SCH (09:00)
[2020-11-06] MEDS: levETIRAcetam 250 MG TABLET PO SCH (10:14)
[2020-11-06] MEDS: Aspirin 81 MG TAB.CHEW PO SCH (10:14)
[2020-11-06] MEDS: Topiramate 25 MG TABLET PO SCH (10:15)
[2020-11-06] MEDS: Cyanocobalamin (B-12) 1,000 MCG TABLET PO SCH (10:15)
[2020-11-06 12:02] LABS: Basophils % 0.6 %; Eosinophils # 0.1 K/mcL (0.0-0.6); Eosinophils % 1.9 %; Hematocrit 44.7 % (35.3-44.9); Hemoglobin 14.9 g/dL (11.5-15.4); Immature Granulocytes % 0.2 % (0-4); Lymphocytes # 1.7 K/mcL (0.6-4.6); Lymphocytes % 32.6 %; Mean Corpuscular HGB Conc 33.3 g/dL (31.6-35.5); Mean Corpuscular Hemoglobin 31.5 pg (28.0-33.3); Mean Corpuscular Volume 94.5 fL (83.0-100.0); Mean Platelet Volume 10.8 fL (9.4-12.4); Monocytes # 0.4 K/mcL (0.0-1.3); Monocytes % 8.5 %; Neutrophils # 2.9 K/mcL (1.6-8.9); Platelet Count 159 K/mcL (140-400); Red Blood Count 4.73 M/mcL (3.82-4.97); Red Cell Distribution Width 12.2 % (11.5-14.5); Segmented Neutrophils % 56.2 %; White Blood Count 5.2 K/mcL (4.3-11.1)
[2020-11-06 12:19] LABS: Alanine Aminotransferase 19 Units/L (7-52); Albumin 4.2 g/dL (3.5-5.7); Albumin/Globulin Ratio 1.6 (1.1-2.2); Alkaline Phosphatase 45 Units/L (34-104); Aspartate Amino Transferase 26 Units/L (13-39); BUN/Creatinine Ratio 18 (6-26); Bilirubin,Total 0.6 mg/dL (0.3-1.0); Blood Urea Nitrogen 17 mg/dL (8-23); Carbon Dioxide 24 mEq/L (23-29); Chloride 105 mEq/L (98-107); Globulin 2.6 g/dL (2.4-3.5); Glucose 106 mg/dL (70-105); Osmolality,Calculated 288 (280-300); Potassium 3.5 mEq/L (3.5-5.1); Sodium 138 mEq/L (136-145); Total Protein 6.8 g/dL (6.4-8.9); eGFR For African Americans > 60 (> 60); eGFR For Non-African Americans 57 (> 60)
[2020-11-06 17:12] VITALS: BP 118/70
== END 2020-11-06 17:05 | disposition home or self-care (01) ==
LOC: EMEROOARM 00:46 → 2NENU 00:46 → SUATTDRO 04:34 → 2NENU 05:14
PROVIDERS: ADMIT Family Medicine; ATTEND Internal Medicine